=== PATIENT | male | born 1955 | race Caucasian/White ===

== ENCOUNTER 2025-03-13 11:27 | Day surgery (SDC) | payer MEDICARE, SELFPAY ==
[2025-03-09 14:21] VITALS: BMI 37.3
--- OUTSIDE RECORDS SUMMARY | 2025-03-10 13:55 | XMS_ITS ---
Author Organization [facility] Address [address] [place] [address] Care Team Providers Care Concrete Block Plant Supervisor Name Role Phone Onel Brenner MD Primary Care Provider Donald Ratliff [phone] REASON FOR VISIT missing cpt code Encounters Encounter Location Date Provider Diagnosis [facility] [address] [place] [address] 02/21/2025 Donald Flores Plan Of Treatment Next Appt Details Provider Name:Donald Flores , 03/13/2025 12:40:00 PM, [address] [place] [address] , [place], [place], [id number], Progress Notes * SRINI CR PDOB: (70 yo M)Acc No.[id number]:02/21/2025 Patient:?SRINI CR :1955???Age:70 Y???Sex:Male Address:[address] [place] [address] * * Date:?
--- OUTSIDE RECORDS SUMMARY | 2025-03-10 13:55 | XMS_ITS ---
Author Organization [facility] Address [address] [place] [address] Care Team Providers Care Specifications Checker Name Role Phone Onel Brenner MD Primary Care Provider Donald Ratliff [phone] REASON FOR VISIT no show Encounters Encounter Location Date Provider Diagnosis [facility] [address] [place] [address] 07/27/2024 Donald Flores Plan Of Treatment Next Appt Details Provider Name:Donald Flores , 03/13/2025 12:40:00 PM, [address] [place] [address] , [place], [place], [id number], Progress Notes * SRINI CRDOB:1955 (69 yo M)Acc No.[id number]:07/27/2024 Patient:?SRINI CR :1955???Age:69 Y???Sex:Male Address:[address] [place] [address] * true * Date:? Generated for Printi ng/Faxing/eTransmitting on:?03/10/2025 01:55 PM EDT
--- OUTSIDE RECORDS SUMMARY | 2025-03-10 13:55 | XMS_ITS ---
Author Organization [facility] Address [address] [place] [address] Care Team Providers Care Craps Dealer Name Role Phone Onel Brenner MD Primary Care Provider Donald Ratliff [phone] Allergies No Known Allergies REASON FOR VISIT Patient presents today for a screening colon Medications Medication SIG (Take, Route, Frequency, Duration) Notes Start Date End Date Status Dupixent 300 MG/2ML as directed Subcutan eous Every 3 weeks Active Lisinopril 40 MG 1 tablet Orally Once a day Active amLODIPine Besylate 10 MG 1 tablet Orall y Once a day for 30 day(s) Active Aspir-81 81 MG 1 tablet Orally Once a day Active Jardiance 10 MG 1 tablet Orally Once a day for 30 day(s) 12/09/2024 Active Problems Problem Type SNOMED Code ICD Code Onset Dates Problem Status W/U Status Risk Notes Problem Long-term current use of aspirin (839885465134 103) Aspirin long-term use (Z79.82) Active confirmed Vital Signs Temperature 98.6 degrees Fahrenheit 12/09/19 25 Blood pressure systolic 000 mm Hg 12/09/19 25 Blood pressure diastolic 00 mm Hg 025 Height 67 in 12/09/2024 Weight 238 lb 4 oz lbs 12/09/2024 BMI 37.31 kg/m2 12/09/2024 Encounters Encounter Location Date Provider Diagnosis [facility] [address] [place] [address] 12/09/2024 Donald Flores History of adenomato us polyp of colon Z86.010 ; Aspirin long-term use Z79.82 ; Encounter for screening for malignant neoplasm of colon Z12.11 and Preprocedural examination Z01.818 Assessments Encounter Date Diagnosis (ICD Code) Assessment Notes Treatment Notes Treatment Clinical Notes Section Notes 12/09/2024 History of adenomatous polyp of colon (ICD-10 - Z86.010) Overall, Srini appears quite well. Given his age, excellent clinical appearance, his history of tubular adenomas, and his last colonoscopy being over 5 years ago, I did recommend a followup colonoscopy for further screening purposes. We did review the rationale for that regard to colon cancer prevention. Full consent was obtained for this, including risks of bleeding and perforation. The procedure will be done monitored anesthesia care. He was given the below instructions regarding adjustment of his medications for the procedure. Srini was comfortable with this plan. Thank you again for allowing me to participate in Srini's care. I shall continue to keep you advised of his progress. 12/09/2024 Aspirin long-term use (ICD-10 - Z79.82) Overall, Srini appears quite well. Given his age, excellent clinical appearance, his history of tubular adenomas, and his last colonoscopy being over 5 years ago, I did recommend a followup colonoscopy for further screening purposes. We did review the rationale for that regard to colon cancer prevention. Full consent was obtained for this, including risks of bleeding and perforation. The procedure will be done monitored anesthesia care. He was given the below instructions regarding adjustment of his medications for the procedure. Srini was comfortable with this plan. Thank you again for allowing me to participate in Srini's care. I shall continue to keep you advised of his progress. 12/09/2024 Encounter for screening for malignant neoplasm of colon (ICD-10 - Z12.11) DO NOT TAKE JARDIANCE FOR 3 DAYS BEFORE THE COLONOSCOPY. CALL ME IF YOUR MEDICATION CHANGES. STOP ASPIRIN FOR 1 WEEK BEFORE THE COLONOSCOPY Overall, Srini appears quite well. Given his age, excellent clinical appearance, his history of tubular adenomas, and his last colonoscopy being over 5 years ago, I did recommend a followup colonoscopy for further screening purposes. We did review the rationale for that regard to colon cancer prevention. Full consent was obtained for this, including risks of bleeding and perforation. The procedure will be done monitored anesthesia care. He was given the below instructions regarding adjustment of his medications for the procedure. Srini was comfortable with this plan. Thank you again for allowing me to participate in Srini's care. I shall continue to keep you advised of his progress. 12/09/2024 Preprocedural examination (ICD-10 - Z01.818) Overall, Srini appears quite well. Given his age, excellent clinical appearance, his history of tubular adenomas, and his last colonoscopy being over 5 years ago, I did recommend a followup colonoscopy for further screening purposes. We did review the rationale for that regard to colon cancer prevention. Full consent was obtained for this, including risks of bleeding and perforation. The procedure will be done monitored anesthesia care. He was given the below instructions regarding adjustment of his medications for the procedure. Srini was comfortable with this plan. Thank you again for allowing me to participate in Srini's care. I shall continue to keep you advised of his progress. Plan Of Treatment Treatment Notes Assessment Notes Encounter for screening for malignant neoplasm of colon DO NOT TAKE JARDIANCE FOR 3 DAYS BEFORE THE COLONOSCOPY. CALL ME IF YOUR MEDICATION CHANGES. STOP ASPIRIN FOR 1 WEEK BEFORE THE COLONOSCOPY Future Test Test Name Order Date COLONOSCOPY 12/09/2024 Next Appt Details Follow Up: prn, Reason: Provider Name:Donald Flores , 03/13/2025 12:40:00 PM, [address] [place] [address], [id number], Progress Notes * SRINI CR PDOB: (70 yo M)Acc No.[id number]:12/09/2024 Progress Notes Patient:?SRINI CR P Provider:?Donald Flores MD :1955???Age:69 Y???Sex:Male Harshad e:12/09/2024 Address: [address] [facility] Pcp:Onel Brenner MD Subjective: * Chief Complaints: * ???Patient presents today fo r a screening colon * HPI: ???incontinence:? I saw Srini in the office today for evaluation of his personal history of tubular adenomas of the colon and need for colorectal cancer screening. Last saw Srini in April 2019, at which time he underwent a followup colonoscopy with removal of only a hyperplastic polyp. He has had tubular adenomas removed on previous colonoscopies. He presently feels very well. He enjoys a good appetite without any significant heartburn or dysphagia. His bowel movements have been regular and without any signs of bleeding. He denies abdominal pain, jaundice, nor unintentional weight loss. He denies any known family history of colorectal cancer. * ROS:?General/Constitutional:?Change in appetite?denies.?Chills?denies.?Fatigue?denies.?Ophthalmologic:?Comments?all negative.?ENT:?Comments?all negative.?Respiratory:?hemoptysis?denies.?Cough?denies.?Cardiovascular:?Chest pain?denies.?Orthopnea?denies.?Gastrointestinal:?Comments?See HPI for details.?Genitourinary:?Hematuria?denies.?Dysuria?denies.?Musculoskeletal:?Painful joints?denies.?Weakness?denies.?Skin:?Itching?denies.?Rash?denies.?Neurologic:?Headache?denies.?Seizures?denies.?Psychiatric:?Comments?all negative.? * Medical History:? * Surgical History:?Left hip r eplacement 07/2020 * Hospitalization/Major Diagno stic Procedure:?No Hospitalization History. * Family History:?Father: dece ased, diagnosed with HTN (hypertension), Diabetes, Heart disease.?Mother: .? No colorectal cancer. No family history of liver cancer. * Social History:?Tobacco Use:?Tobacco Use/Smoking?Are you a: nonsmoker.?Drugs/Alcohol:?Alcohol Screen?Points: 2, Interpretation: Negative.?Miscellaneous:?Marital status: . 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 ???Nonsmoker; occ. alcohol. * Medications:?TakingDupixent 300 MG/2ML Solution Auto-injector as directed Subcutaneous Every 3 weeks Lisinopril 40 MG Tablet 1 tablet Orally Once a day Aspir-81 81 MG Tablet Delayed Release 1 tablet Orally Once a day amLODIPine Besylate 10 MG Tablet 1 tablet Orally Once a day Jardiance 10 MG Tablet 1 tablet Orally Once a day Medication List reviewed and reconciled with the patientTaking Dupixent 300 MG/2ML Solution Auto-injector as directed Subcutaneous Every 3 weeks Taking Lisinopril 40 MG Tablet 1 tablet Orally Once a day Taking Aspir-81 81 MG Tablet Delayed Release 1 tablet Orally Once a day Taking amLODIPine Besylate 10 MG Tablet 1 tablet Orally Once a day Taking Jardiance 10 MG Tablet 1 tablet Orally Once a day Medication List reviewed and reconciled with the patient * Allergies:?N.K.D.A.yes[Aller gies Verified] Objective: * Vitals:?Wt: 238 lb 4 oz, Ht: 67 in, BMI:37.31Index, BP: 000/00 mm Hg, Temp: 98.6. * Examination: ???General Examination: ?GENERAL APPEARANCE:?pleasant, well nourished, well developed, in no acute distress.?EYES:?sclera non-icteric.?ORAL CAVITY:?mucosa moist.?NECK/THYROID:?no cervical lymphadenopathy, neck supple.?SKIN:?nonjaundiced, no spider angiomata.?HEART:?S1, S2 normal.?LUNGS:?clear to auscultation bilaterally.?ABDOMEN:?normal bowel sounds, no guarding or rigidity, no guarding or rigidity, no masses palpable, soft, nontender, nondistended.?EXTREMITIES:?no edema.?NEUROLOGIC:?alert and oriented.? Assessment: * Assessment: 1.?Aspirin long-term use - Z 79.82 (Primary)???2.?History of adenomatous polyp of colon - Z86.010???3.?Encounter for screening for malignant neoplasm of colon - Z12.11???4.?Preprocedural examination - Z01.818??? Overall, Srini appears quite well. Given his age, excellent clinical appearance, his history of tubular adenomas, and his last colonoscopy being over 5 years ago, I did recommend a followup colonoscopy for further screening purposes. We did review the rationale for that regard to colon cancer prevention. Full consent was obtained for this, including risks of bleeding and perforation. The procedure will be done monitored anesthesia care. He was given the below instructions regarding adjustment of his medications for the procedure. Srini was comfortable with this plan. Thank you again for allowing me to participate in Srini's care. I shall continue to keep you advised of his progress. Plan: * Treatment: 2.?Encounter for screening for malignant neoplasm of colon?Procedure: COLONOSCOPY (Ordered for 12/09/2024)* with MACsched for 03/13/25 at 12:40 pmmiralax Notes: DO NOT TAKE JARDIANCE FOR 3 DAYS BEFORE THE COLONOSCOPY. CALL ME IF YOUR MEDICATION CHANGES. STOP ASPIRIN FOR 1 WEEK BEFORE THE COLONOSCOPY?? * Procedure Codes:?3017F COLOR ECTAL CA SCREEN DOC [id number] TOBACCO [id number] BP SCR NOT PRFRM REC REASON NOS * Preventive Medicine:? ??Counseling:?Care goal follow-up plan:?Above Normal BMI Follow-up?Giving encouragement to exercise,?BMI management provided?Yes.? ??Screenings:?Fall Risk Screening?Fall Risk Assessment:?No falls in the past year,?Screening:?No falls in the past year,?Assessment:?Not performed, no reason specified,?Plan of Care:?Not documented, no reason specified.? * Follow Up:?prn * * Sign off status: Completed true * Provider:?Donald Flores MD Date:? 025 Generated for Jaime sanchez/Eugene/Chicho on:?03/10/2025 01:55 PM EDT History and Physical Notes * HPI (History of Present Illness) Category Sub-Category Detail Notes Category Not es incontinence I saw Srini in the office today for evaluation of his personal history of tubular adenomas of the colon and need for colorectal cancer screening. Last saw Srini in April 2019, at which time he underwent a followup colonoscopy with removal of only a hyperplastic polyp. He has had tubular adenomas removed on previous colonoscopies. He presently feels very well. He enjoys a good appetite without any significant heartburn or dysphagia. His bowel movements have been regular and without any signs of bleeding. He denies abdominal pain, jaundice, nor unintentional weight loss. He denies any known family history of colorectal cancer. Examination Category Sub-Category Detail Notes Category Not es General Examination GENERAL APPEARANCE: pleasant , well nourished, well developed, in no acute distress HEAD: EYES: sclera non-icteric EARS: NOSE: THROAT: NECK/THYROID: no cervical lymphade nopathy, neck supple HEART: S1, S2 normal CHEST: LUNGS: clear to auscultatio n bilaterally ABDOMEN: normal bowel sounds, no guarding or rigidity, no guarding or rigidity, no masses palpable, soft, nontender, nondistended NEUROLOGIC: alert and oriented SKIN: nonjaundiced, no spi samantha angiomata EXTREMITIES: no edema PERIPHERAL PULSES: BACK: BREASTS: MUSCULOSKELETAL: MALE GENITOURINARY: LYMPH NODES: RECTAL EXAM: FEMALE GENITOURINARY: ORAL CAVITY: mucosa moist
--- OUTSIDE RECORDS SUMMARY | 2025-03-10 13:55 | XMS_ITS | Clinical Summary ---
Author Organization [employer] Address [address] [place] [address] Care Team Providers Care Supervisor Advice Name Role Phone Onel Brenner Primary Care Provider [phone] Allergies No known active allergies Medications lisinopril (PRINIVIL,ZESTRI L) 40 mg tablet Take 40 mg by mouth 1 (one) time each day. 02/15/2019 Active amLODIPine (NORVASC) 10 mg tablet Take 10 mg by mouth 1 (one) time each day. 07/04/2019 Active aspirin 81 mg chewable tablet 1 tablet Acti ve Active Problems Problem Noted Date Diagnosed Date Allergic contact dermatitis due to other agents 06/08/2019 Essential hypertension 10/27/2017 Colon polyp 10/27/2017 Obesity 10/27/2017 Immunizations Name Administration Dates Next Due Influenza, trivalent (IIV3), split virus (single-dose) PF 11/06/2021,10/08/2020 Family History Medical History Relation Comments Emphysema Father Hypertension Father Relation Status Comments Father Mother Social History Tobacco Use Types Packs/Day Years Used Date Smoking Tobacco: Never Smokeless Tobacco: Never Alcohol Use Standard Drinks/Week Comments Yes 0 (1 standard drink = 0.6 oz pur e alcohol) AUDIT-C Answer Date Recorded Frequency of Alcohol Consumption Monthly or less 11/29/2019 Average Number of Drinks Not on file 019 Frequency of Binge Drinking Not on file 11/01 Sex and Gender Information Value Date Recorded Sex Assigned at Not on file Legal Sex Male 10:58 AM MST Gender Identity Not on file Sexual Orientation Not on file Last Filed Vital Signs Vital Sign Reading Time Taken Comments Blood Pressure 122/79 11/29/2019 1:19 PM EST Pulse 70 11/29/2019 1:19 PM EST Temperature 36.8 ??C (98.3 ??F) 11/29/2019 1:19 PM ES T Respiratory Rate 18 11/29/2019 1:19 PM EST Oxygen Saturation 97% 11/29/2019 1:19 PM EST Inhaled Oxygen Concentration - - Weight 99.5 kg (219 lb 6.4 oz) 11/29/2019 1:19 P M EST Height 172 cm (5' 7.72 ) 11/29/2019 1:19 PM EST Body Mass Index 33.64 11/29/2019 1:19 PM EST Plan of Treatment Health Maintenance Due Date Last Done Comments CT Colonography 1955 Cologuard 1955 FOBT/FIT 1955 Hepatitis C Screening 1955 Sigmoidoscopy 1955 PHQ-9 Depression Screen 1969 Complete Annual HRA 1975 LOLIS-7 Anxiety Screen 1975 Zoster Vaccines (1 of 2) 2007 RSV Vaccine (SCDM) (1 - Risk 60-74 years 1-dose series) 2017 Annual Preventive Exam 08/13/2022 , 06/15/2020, 06/15/2020, Additional history exists Pneumococcal Vaccine: 50+ Ye ars (2 of 2 - PCV) 08/13/2022 08/13/2021 COVID-19 Vaccine (3 - 2023-2 5 season) 2024 02/08/2021, 01/11/2021 Influenza Vaccine (Season Ended) 2025 11/06/2021, 10/08/2020, 12/26/2019, Additional history exists Colonoscopy 05/11/2029 05/11/2019 Colorectal Cancer Screening 05/11/2029 DTaP,Tdap,and Td Vaccines (3 - Td or Tdap) 03/29/2031 03/29/2021, 11/30/2009 [facility] Care Teams Supervisor Advice Relationship Specialty Start Date End Date Onel Brenner PCP - General 11/29/19
--- OUTSIDE RECORDS SUMMARY | 2025-03-10 13:55 | XMS_ITS | Patient Health Record ---
Author Organization [facility] Address [address] [place] [address] Care Team Providers Care Lockstitch Sleeve Maker Name Role Phone Onel Brenner MD Primary Care Provider Donald Ratliff Unavailable [phone] Allergies No Known Allergies Reason For Referral No Information Medications Medication SIG (Take, Route, Frequency, Duration) [...] a day for 30 day(s) 12/09/2024 Active Immunizations Vaccine Route Administration Date Status Comme nts Influenza Unknown 07/19/2024 Administered Influenza Unknown 02/24/2019 Refused Problems Problem Type SNOMED Code ICD Code Onset Dates Problem Status W/U Status Risk Notes Problem 552607225 Encounter for screening for malignant neoplasm of colon (Z12.11) Active confirmed Problem 956672166 History of adenomatous polyp of colon (Z86.010) Active confirmed Problem 092565753062890 Preprocedural examination (Z01.818) Active confirmed Problem Long-term current use of aspirin (889459581342826) Aspirin long-term use (Z79.82) Active confirmed Vital Signs Temperature 98.6 degrees Fahrenheit 12/09/2024 Blood pressure diastolic 00 mm Hg 12/09/2024 Height 67 in 12/09/2024 Blood pressure systolic 000 mm Hg 12/09/2024 Weight 238 lb 4 oz lbs 12/09/2024 BMI 37.31 kg/m2 12/09/2024 Encounters Encounter Location Date Provider Diagnosis [facility] [address] [place] [address] 12/09/2024 Donald Flores History of adenomato us polyp of colon Z86.010 ; Aspirin long-term use Z79.82 ; Encounter for screening for malignant neoplasm of colon Z12.11 and Preprocedural examination Z01.818 [facility] [address] [place] [address] 02/21/2025 Donald Flores [facility] [address] [place] [address] 07/27/2024 Donald Flores Assessments Encounter Date Diagnosis (ICD Code) Assessment [...] advised of his progress. Plan Of Treatment Future Test Test Name Order Date COLONOSCOPY 10/14/2013 COLONOSCOPY 02/24/2019 COLONOSCOPY 12/09/2024 Next Appt Details Provider Name:Donald Crescencio Flores , 03/13/2025 12:40:00 PM, [address] [place] [address] , [place], [place], [id number], Insurance Providers Payer Name Payer Address Payer Phone Subscriber Number Group Number Insured Name Patient Relationship to Insured Coverage Start Date Coverage End Date [place] [address] [place] [address] [phone] [id number] SRINI CR Self - patient is the insured [employer] ATTN CLAIMS [address] [place] [address] [id number] SRINI CR Self - patient is the insured Medical (General) History Medical History History ICD Code Screening colonoscopy 04-21- 008 and 09/2013--1 small tubular removed each time, sigmoid diverticulosis, small internal hemorrhoids Hypertension Denies NE,DM,CVA,Lung disease,renal dise ase NIDDM Colonoscopy 04/2019 with only a hyperplas tic polyp Eczema--on Dupixent Surgical History Surgery Date(Month/Year) Left hip replacement 07/2020
[2025-03-13 11:42] VITALS: BMI 34.5
[2025-03-13] MEDS: Lactated Ringers 1,000 ML 50 ML IVCONT (11:53)
--- NOTE | 2025-03-13 11:54 | HO.ANESPROP2 ---
HPI - Anesthesia Eval Consult details Narrative: colon [facility] Past Medical History Medical History Diabetes Eczema HTN (hypertension) Family History Family history of problems with anesthesia: No Surgical History Surgical History History of total left hip replacement H/O colonoscopy History of Problems with Anesthesia: No Social History Social History Are you a primary critical care nurse practitioner to a significant other at home: No Do you presently have visiting nurse or other home services: No Patient Tobacco Use Status: Never used Tobacco Have you been hit, kicked, punched, or otherwise hurt by someone within the past year? If so, by whom?: No Are you DNR?: No Advance Directives: No Advance Directives Information Provided: Yes Poor oral hygiene: No Meds Allergies Allergy/AdvReac Type Severity Reaction Status Date / Time No Known Allergies Allergy Verified 03/10/25 12:51 Active Medications: Current Medications Lactated Ringer's (Lr) 1,000 mls @ 50 mls/hr IVCONT .Q20H DEBI Last Admin: 03/13/25 11:53 Dose: 50 mls/hr Sodium Biphosphate/Sodium Phosphate (Sodium Phosphate,Medina-Dibasic 133 Ml Enema) 133 ml [place] ONCE PRN PRN Reason: Poor Colonoscopy Prep Results Home Medications ?Medication ?Instructions ?Recorded ?Confirmed ?Last Taken ?Type amlodipine 10 mg tablet 10 mg PO DAILY 03/09/25 03/09/25 03/13/25 History aspirin 81 mg tablet,delayed 81 mg PO DAILY 03/09/25 03/09/25 03/06/25 History release dupilumab 300 mg/2 mL subcutaneous 300 mg subcut Q2W 03/09/25 03/09/25 Unknown History pen injector (Dupixent) empagliflozin 10 mg tablet 10 mg PO DAILY 03/09/25 03/09/25 03/06/25 History (Jardiance) lisinopril 40 mg tablet 40 mg PO DAILY 03/09/25 03/09/25 03/13/25 History Exam Height,Weight and Vital Signs: Height 5 ft 7 in Weight 100 kg Airway Mallampati Class: II TM Dist: >3cm Neck ROM: Full Heart: rrr Lungs: cta Assessment and Plan Assessment Anesthesia Assessment: Anesthesia Plan Discussed and Chart Reviewed Final Anesthetic Review Family History of Problems with Anesthesia: No History of Problems with Anesthesia: No NPO: Yes ASA Class: III Final Preanesthetic Review: No Changes in Pt Med Stat, Meds/Allgs Chart Reviewed, Consent Obtained/Reviewed and Anes Risks/Benef Reviewed Patient Risk: Intermediate Procedure Risk: Low Anesthetic Plan Anesthetic Plan: MAC: Disposition: Standard PACU
[2025-03-13 11:59] VITALS: BP 126/83; PULSE 73; RESP 18; TEMP 36.6; O2SAT 95
[2025-03-13 12:00] LABS: Glucose, Whole Blood 128 mg/dL (60-115)
[2025-03-13 13:36] VITALS: BP 87/52; PULSE 67; RESP 16; TEMP 36.3; O2SAT 96
--- NOTE | 2025-03-13 13:42 | PM.OP ---
Brief Operative Note Date of Service: 03/13/25 Pre-op diagnosis: Screening Post-op diagnosis: other (Polyp) Procedure: Colonoscopy to the cecum and TI with cold snare polypectomy x 1 Surgeon: Donald Flores MD Anesthesia: MAC Was an Drapery Supervisor used for this Procedure?: No Estimated blood loss (mL): 2.0 Pathology: other (A. Transverse colon polyp) Condition: stable Disposition: PACU
[2025-03-13 13:50] VITALS: BP 112/69; PULSE 61; RESP 16; O2SAT 94
[2025-03-13 14:01] VITALS: BP 122/67; PULSE 62; RESP 16; TEMP 36.7; O2SAT 96
--- NOTE | 2025-03-14 00:58 | OP_ITS ---
DATE OF SERVICE: 03/13/2025 SURGEON: Donald Flores MD INDICATIONS: The patient presents for evaluation of colorectal cancer screening. Full consent has been obtained from him for this, including risks of bleeding and perforation. PREOPERATIVE DIAGNOSIS: Colorectal cancer screening. POSTOPERATIVE DIAGNOSIS: PROCEDURE PERFORMED: Colonoscopy to cecum and terminal ileum with cold snare polypectomy. ESTIMATED BLOOD LOSS: COMPLICATIONS: ANESTHESIA: Monitored anesthesia care. ASSISTANTS: SPECIMENS: POSTOPERATIVE DIAGNOSES: Colorectal cancer screening, colon polyp, diverticulosis, and internal hemorrhoids. DESCRIPTION OF PROCEDURE: The patient was placed in left lateral decubitus position. The digital rectal exam revealed no abnormalities. The Olympus video pediatric colonoscope was entered into the rectum and advanced easily to the cecum. Once in the cecum, I did identify normal-appearing cecal pouch with appendiceal orifice and a normal-appearing ileocecal valve. The terminal ileum was cannulated and appeared normal. The scope was withdrawn back in the colon. The entire cecum and ileocecal valve appeared normal. The scope was slowly withdrawn, assessing all mucosal surfaces carefully. Preparation was excellent. In the transverse colon, there was a flat, but raised approximately 10 mm polyp, which was removed by cold snare polypectomy and recovered by suction. The polypectomy site appeared clean, without any sign of residual polyp nor significant bleeding. I did not visualize any other polyps, colitis, nor angiodysplasia. There was a mild amount of sigmoid diverticulosis. In the rectum, scope was retroflexed visualizing internal hemorrhoids, but no other pathology. The rectal mucosa appeared normal. The scope was straightened and withdrawn from the patient. He tolerated the procedure well and was returned to the recovery area in stable condition. IMPRESSION: 1. Colon polyp. 2. Diverticulosis. 3. Internal hemorrhoids. PLAN: The results of the pathology will be checked. I would recommend a repeat colonoscopy in 5 years for further screening. He was advised not to use any aspirin or NSAIDs for 1 week. MD ELIEZER Brown/MOLLYL / [id number]
== END 2025-03-13 14:42 | disposition home or self-care (01) ==
PROVIDERS: PCP Internal Medicine; Visit Provider Internal Medicine
PROC: 0DJD8ZZ Inspection of Lower Intestinal Tract, Via Natural or Artificial Opening Endoscopic (ICD-10-PCS; CPT 45378; principal; 2025-03-13 12:40)
DX: Z12.11 Encounter for screening for malignant neoplasm of colon (principal); D12.3 Benign neoplasm of transverse colon; K57.30 Diverticulosis of large intestine without perforation or abscess without bleeding; K64.8 Other hemorrhoids; Z86.0101 Personal history of adenomatous and serrated colon polyps; E11.9 Type 2 diabetes mellitus without complications; I10 Essential (primary) hypertension; Z79.899 Other long term (current) drug therapy; Z79.82 Long term (current) use of aspirin
CPT/HCPCS: 45385; 82947; 88305; J2704